=== PATIENT | female | born 1975 ===

== ENCOUNTER 2019-04-27 15:54 | Outpatient (CLI) | payer OTHER ==
--- NOTE | 2019-04-27 16:40 | XRay Report ---
XR spine cervical 2-3V INDICATION / CLINICAL INFORMATION: CERVICALGIA. COMPARISON: None available. FINDINGS: BONES/JOINT(S): No vertebral fracture. Trace degenerative disc disease at C4-5, C5-6, and C6-7 with m ild disc height loss and endplate osteophyte formation. No focal subluxation. SOFT TISSUES: No significant abnormality. ADDITIONAL FINDINGS: None. Signer Name: Eloy Angeles MD Signed: 04/27/2019 4:35 PM Workstation Name: [id number]
== END 2019-04-27 15:55 | disposition home or self-care (01) ==
LOC: SPVIMAG 15:54
PROVIDERS: ATTEND Family Medicine
DX: M25.78 Osteophyte, vertebrae (principal)
CPT/HCPCS: 72040